=== PATIENT | male | born 1980 | race Caucasian/White ===

== ENCOUNTER 2025-04-06 11:41 | Emergency (ER) | payer OTHER ==
[~2025-04-06] VITALS: Ht 180.3 cm; Wt 81.8 kg
[2025-04-06 11:50] VITALS: TEMP 97.9
[2025-04-06] MEDS ORDERED: METF-1211 PO (11:55)
[2025-04-06 12:15] LABS: GLUCOMETER DEV NAME(LOC) ER.7; GLUCOSE,POINT OF CARE 448 MG/DL (70-110)
[2025-04-06 12:20] LABS: PLATELET COUNT (AUTO) 223 K/uL (150-450); RED BLOOD CELL COUNT(AUTO) 5.41 MIL/uL (4.50-5.90); RED CELL DISTRIBUTION WIDTH 13.7 % (11.5-14.5); WHITE BLOOD COUNT (AUTO) 5.7 K/uL (4.5-11.0)
[2025-04-06 12:25] LABS: CALCIUM, TOTAL 8.7 mg/dL (8.8-10.5); CREATININE 0.86 mg/dL (0.60-1.30); GLOMERULAR FILTR. RATE CALC > 60 mL/min (>60); SODIUM SERUM 133 mmol/L (136-145); UREA NITROGEN, BLOOD 16 mg/dL (7-18)
[2025-04-06 12:28] LABS: GLUCOSE,RANDOM 459 mg/dL (70-110)
[2025-04-06] MEDS: SODIUM CHLORIDE 0.9% 1,000 ML IV ONE (13:06)
[2025-04-06] MEDS: INSULIN REGULAR, HUMAN 100 UNITS/ML IVP ONE (13:07)
[2025-04-06 15:23] VITALS: BP 112/60; PULSE 57; RESP 18; O2SAT 96
[2025-04-06 15:43] LABS: APPEARANCE,URINE CLEAR (CLEAR); GLUCOSE, URINE (UA) NEGATIVE (NEGATIVE); LEUKOCYTE ESTERASE ,URINE NEGATIVE (NEGATIVE); NITRATE,URINE NEGATIVE (NEGATIVE); OCCULT BLOOD,URINE NEGATIVE (NEGATIVE); SPECIFIC GRAVITIY, URINE 1.015 (1.003-1.030)
[2025-04-06] MEDS ORDERED: SITA1TAB6 PO (15:50)
== END 2025-04-06 16:40 | disposition home or self-care (01) ==
LOC: EMS 11:43
DX: E11.65 Type 2 diabetes mellitus with hyperglycemia (principal)
CPT/HCPCS: 99283; 96374; 96361; 80048; 81003; 82009; 82962; 85025; 36415; J1815; J7030